=== PATIENT | male | born 1970 | race Caucasian/White ===

== ENCOUNTER → 2018-03-26 | Outpatient (CLI) | payer BC ==
--- NOTE | 2018-03-27 08:59 | Diagnostic Imaging Report ---
EXAMINATION: Magnetic resonance imaging of the right knee without intravenous contrast DATE: March 26, 2018. COMPARISON: None. INDICATION: 47-year-old male, right knee pain. TECHNIQUE: Multiplanar, multisequence noncontrast enhanced MR imaging was accomplished. FINDINGS: MENISCI: There is an extensive complex predominantly oblique tear involving the anterior horn, body, and posterior horn of the medial meniscus. There is extrusion of the medial meniscus measuring approximately 4 mm. The lateral meniscus is intact. LIGAMENTS AND TENDONS: The anterior and posterior cruciate ligaments are intact. The superficial component of the medial collateral ligament complex is intact. The iliotibial band, mid third lateral capsular ligament, fibular collateral ligament, biceps femoris tendon, and conjoined tendon are intact. The quadriceps tendon and patellar ligament are intact. JOINT: There is a cartilage fissure with flap morphology involving approximately 50% of the thickness of the cartilage of the medial patellar facet with a transverse dimension of approximately 3 mm as measured on axial T2 fat saturation sequence image 7. There does appear to be irregularity and a probable cartilage flap of the lateral femoral trochlea. There are broad areas of full-thickness cartilage loss involving the mid and posterior weightbearing portions of the medial femoral condyle and subjacent medial tibial plateau with adjacent subchondral sclerosis and degenerative related marrow edema. There is a small to moderate sized knee joint effusion. There is no identified intra-articular body or prominent synovitis. BONE: The additional bone marrow signal is unremarkable. Specifically, negative for fracture, osteomyelitis, osteonecrosis, or marrow replacing process. There is elongation of the lateral aspect of the patella. BURSAE AND SOFT TISSUES: There is no Siu's cyst. There is nonspecific prepatellar subcutaneous edema. IMPRESSION: 1. Extensive complex tear involving the entire medial meniscus with 4 mm of medial meniscal extrusion. 2. Intact lateral meniscus. 3. Intact anterior and posterior cruciate ligaments. Additional ligaments and tendons are intact. 4. Severe medial and mild patellofemoral compartment osteoarthritis. Small to moderate knee joint effusion without identified intra-articular body or prominent synovitis. 5. No acute fracture, bone contusion, or evidence of osteonecrosis. Dictated by: Dictated on workstation # [id number]
== END ==
LOC: RAD 16:03
PROVIDERS: ATTEND Nurse Practitioner
DX: M23.321 Other meniscus derangements, posterior horn of medial meniscus, right knee (principal); M65.861 Other synovitis and tenosynovitis, right lower leg; M17.11 Unilateral primary osteoarthritis, right knee
CPT/HCPCS: 73721

== ENCOUNTER 2020-03-17 09:36 | Emergency (ER) | payer BC ==
[~2020-03-17] VITALS: Ht 180 cm; Wt 89.0 kg
[2020-03-17] MEDS ORDERED: LACTATED RINGERS 1,000 ML IV ONE ×2 (09:59→10:00)
[2020-03-17 10:11] LABS: BASOPHILS % (AUTO) 0 % (0-10); EOSINOPHILS % (AUTO) 0 % (0-10); PLATELET COUNT 137 10^3/uL (130-400)
[2020-03-17 10:13] LABS: HEMATOCRIT 43 % (40-54); LYMPHOCYTES # (AUTO) 1.2 10^3/uL (1.0-4.0); LYMPHOCYTES % (AUTO) 24 % (12-44); MEAN CORPUSCULAR HEMOGLOBIN 30 pg (25-34); MEAN CORPUSCULAR HGB CONC 35 g/dL (32-36); MEAN CORPUSCULAR VOLUME 87 fL (80-99); MEAN PLATELET VOLUME 11.1 fL (9.0-12.2); MONOCYTES # (AUTO) 0.7 10^3/uL (0.0-1.0); MONOCYTES % (AUTO) 14 % (0-12); NEUTROPHILS # (AUTO) 2.9 10^3/uL (1.8-7.8); NEUTROPHILS % (AUTO) 60 % (42-75); WHITE BLOOD COUNT 4.8 10^3/uL (4.3-11.0)
[2020-03-17 10:22] LABS: ALBUMIN 4.1 GM/DL (3.2-4.5); CHLORIDE 96 MMOL/L (98-107); SODIUM 134 MMOL/L (135-145)
[2020-03-17 10:23] LABS: CALCIUM 9.3 MG/DL (8.5-10.1)
[2020-03-17 10:25] LABS: GLUCOSE 93 MG/DL (70-105); TOTAL PROTEIN 6.8 GM/DL (6.4-8.2)
[2020-03-17 10:26] LABS: BILIRUBIN,TOTAL 0.9 MG/DL (0.1-1.0); CARBON DIOXIDE 25 MMOL/L (21-32)
[2020-03-17 10:28] LABS: ALKALINE PHOSPHATASE 60 U/L (40-136); CREATININE SERUM 0.96 MG/DL (0.60-1.30); GFR ESTIMATED > 60
[2020-03-17 10:29] LABS: BUN/CREATININE RATIO 20
[2020-03-17 10:31] LABS: ALANINE AMINOTRANSFERASE 73 U/L (0-55)
[2020-03-17 10:32] LABS: MAGNESIUM 1.9 MG/DL (1.6-2.4)
--- NOTE | 2020-03-17 10:37 | Diagnostic Imaging Report ---
INDICATION: Shortness of breath Portable chest 10:24 AM There are some patchy groundglass infiltrates in the lower portions of both lungs suspicious for viral pneumonia. There are no effusions. IMPRESSION: Bilateral pulmonary infiltrates consistent with viral pneumonia. Dictated by: Dictated on workstation # [id number]
--- NOTE | 2020-03-17 11:23 | NUR ---
PT STATES HE DOES NOT FEEL BETTER DESPITE THE BAG OF FLUIDS. CONTINUES TO COMPLAIN OF DIZZINESS. NOTIFIED.
--- NOTE | 2020-03-17 11:46 | ED General ---
General Chief Complaint: Respiratory Problems Stated Complaint: DIZZY,SOB,COUGH Nursing Triage Note: ASSISTED OUT OF CAR WITH WC. UNDER QUARENTEEN DUE TO AND CHILD HAIVING AZRAID. PT STATES HIS SYMPTOMS STARTED ON THE . CONTINUES WITH DIZZINESS, COUCH, SOA, BODY ACHES AND FEVER. PT HAS BEEN TAKING A ILANA AND PREDNISONE. Nursing Sepsis Screen: No Definite Risk Source of Information: Patient Exam Limitations: No Limitations History of Present Illness Date Seen by Provider: Mar 17, 2020 Time Seen by Provider: 09:50 Initial Comments This 49-year-old gentleman presents to the emergency room with symptoms of COVID-19 including shortness of breath, cough, fatigue, and most prominently lightheadedness. It is the lightheadedness that brought him into the emergency room. His family members have been diagnosed with COVID-19 and his daughter is currently admitted in the hospital. He has not yet been tested. He was treated with a azithromycin which he completed. He has also taken prednisone with his last dose being yesterday. Vital signs are unremarkable. He is not in respiratory distress. Allergies and Home Medications Allergies Coded Allergies: No Known Drug Allergies (Unverified , 03/17/20) Patient Home Medication List Home Medication List Reviewed: Yes Review of Systems Review of Systems Constitutional: see HPI, fever EENTM: no symptoms reported Respiratory: see HPI Cardiovascular: no symptoms reported Gastrointestinal: no symptoms reported Genitourinary: no symptoms reported Musculoskeletal: see HPI Skin: no symptoms reported Psychiatric/Neurological: See HPI Hematologic/Lymphatic: No Symptoms Reported Past Vhukvkr-Oxiohu-Rdhuek Hx Past Med/Social Hx: Reviewed Nursing Past Med/Soc Hx Patient Social History Recent Foreign Travel: No Contact w/Someone Who Travel: No Recent Infectious Disease Expo: No Recent Hopitalizations: No Past Medical History Surgeries: No Respiratory: No Cardiac: Yes Hypertension Neurological: No Genitourinary: No Gastrointestinal: No Musculoskeletal: No Endocrine: No HEENT: No Cancer: No Psychosocial: No Integumentary: No Physical Exam Vital Signs Vital Signs - First Documented 03/17/20 09:45 Temp 37.1 Pulse 51 Resp 16 B/P (MAP) 125/87 (100) Pulse Ox 95 O2 Delivery Room Air Capillary Refill : Less Than 3 Seconds Height, Weight, BMI Height: '" Weight: lbs. oz. kg; 27.00 BMI Method: General Appearance: No Apparent Distress, WD/WN, Other (Generally ill appearing) HEENT: PERRL/EOMI, Normal ENT Inspection, Pharynx Normal Neck: Normal Inspection Respiratory: Lungs Clear, No Accessory Muscle Use, No Respiratory Distress, Decreased Breath Sounds (Shallow respirations) Cardiovascular: Regular Rate, Rhythm, No Edema, No Murmur Gastrointestinal: Non Tender, Soft Extremity: Normal Inspection, No Calf Tenderness, No Pedal Edema Neurologic/Psychiatric: Alert, Oriented x3, No Motor/Sensory Deficits, Normal Mood/Affect, allergy nurse II-XII Norm as Tested Skin: Normal Color, Warm/Dry Progress/Results/Core Measures Suspected Sepsis Recent Fever Within 48 Hours: Yes Infection Criteria Present: Suspected New Infection New/Unexplained Altered Menta: No Sepsis Screen: No Definite Risk SIRS Temperature: Pulse: 51 Respiratory Rate: 16 Laboratory Tests 03/17/20 10:00: White Blood Count 4.8 Blood Pressure 125 /87 Mean: 100 Laboratory Tests 03/17/20 10:00: Creatinine 0.96, Platelet Count 137, Total Bilirubin 0.9 Results/Orders Lab Results Laboratory Tests Test 03/17/20 09:58 03/17/20 10:00 Range/Units White Blood Count 4.8 4.3-11.0 10^3/uL Red Blood Count 4.97 4.30-5.52 10^6/uL Hemoglobin 15.0 13.3-17.7 g/dL Hematocrit 43 40-54 % Mean Corpuscular Volume 87 80-99 fL Mean Corpuscular Hemoglobin 30 25-34 pg Mean Corpuscular Hemoglobin Concent 35 32-36 g/dL Red Cell Distribution Width 12.5 10.0-14.5 % Platelet Count 137 130-400 10^3/uL Mean Platelet Volume 11.1 9.0-12.2 fL Immature Granulocyte % (Auto) 1 % Neutrophils (%) (Auto) 60 42-75 % Lymphocytes (%) (Auto) 24 12-44 % Monocytes (%) (Auto) 14 H 0-12 % Eosinophils (%) (Auto) 0 0-10 % Basophils (%) (Auto) 0 0-10 % Neutrophils # (Auto) 2.9 1.8-7.8 10^3/uL Lymphocytes # (Auto) 1.2 1.0-4.0 10^3/uL Monocytes # (Auto) 0.7 0.0-1.0 10^3/uL Eosinophils # (Auto) 0.0 0.0-0.3 10^3/uL Basophils # (Auto) 0.0 0.0-0.1 10^3/uL Immature Granulocyte # (Auto) 0.1 0.0-0.1 10^3/uL Sodium Level 134 L 135-145 MMOL/L Potassium Level 4.0 3.6-5.0 MMOL/L Chloride Level 96 L 98-107 MMOL/L Carbon Dioxide Level 25 21-32 MMOL/L Anion Gap 13 5-14 MMOL/L Blood Urea Nitrogen 19 H 7-18 MG/DL Creatinine 0.96 0.60-1.30 MG/DL Estimat Glomerular Filtration Rate > 60 BUN/Creatinine Ratio 20 Glucose Level 93 70-105 MG/DL Calcium Level 9.3 8.5-10.1 MG/DL Corrected Calcium 9.2 8.5-10.1 MG/DL Magnesium Level 1.9 1.6-2.4 MG/DL Total Bilirubin 0.9 0.1-1.0 MG/DL Aspartate Amino Transf (AST/SGOT) 53 H 5-34 U/L Alanine Aminotransferase (ALT/SGPT) 73 H 0-55 U/L Alkaline Phosphatase 60 40-136 U/L C-Reactive Protein High Sensitivity 4.11 H 0.00-0.50 MG/DL Total Protein 6.8 6.4-8.2 GM/DL Albumin 4.1 3.2-4.5 GM/DL My Orders Orders - CARMEN CHRISTY MD Lactated Ringers (Lr 1000 Ml Iv Solution (03/17/20 09:59) Ed Iv/Invasive Line Start (03/17/20 10:00) Lactated Ringers (Lr 1000 Ml Iv Solution (03/17/20 10:00) Cbc With Automated Diff (03/17/20 10:00) Comprehensive Metabolic Panel (03/17/20 10:00) Hs C Reactive Protein (03/17/20 10:00) Magnesium (03/17/20 10:00) Chest 1 View, Ap/Pa Only (03/17/20 10:00) Coronavirus Sars-Cov-2 So 2018 (03/17/20 11:41) Medications Given in ED Current Medications Medications Dose Ordered Sig/Amy Route Start Time Stop Time Status Last Admin Dose Admin Lactated Ringer's 1,000 ml @ 0 mls/hr Q0M ONCE IV 03/17/20 10:00 03/17/20 10:02 DC 03/17/20 10:05 1,000 MLS/HR Vital Signs/I&O 03/17/20 03/17/20 09:45 12:01 Temp 37.1 Pulse 51 52 Resp 16 20 B/P (MAP) 125/87 (100) 132/80 Pulse Ox 95 95 O2 Delivery Room Air Room Air Capillary Refill : Less Than 3 Seconds Blood Pressure Mean: 100 Progress Note : Progress Note Work-up was fairly unremarkable except for findings expected for COVID-19 including mildly elevated CRP and a groundglass infiltrates on the chest x-ray. Patient received IV fluids which did not seem to help his lightheadedness. He did not seem to have orthostatic hypotension. Ultimately, I believe his sensation of lightheadedness is part of the COVID-19 syndrome. Since he had not been formally tested for COVID-19 a swab was obtained. Patient was dismissed home with return precautions. Diagnostic Imaging Diagonstic Imaging: Xray Plain Films/CT/US/NM/MRI: chest Comments Chest x-ray viewed by me and report reviewed. See report below: NAME: RODRICK MCKEON [facility] REC#: [id number] PT STATUS: REG ER : 1970 PHYSICIAN: CARMEN CHRISTY MD ADMIT DATE: 03/17/20/ER Signed Date of Exam:03/17/20 CHEST 1 VIEW, AP/PA ONLY INDICATION: Shortness of breath Portable chest 10:24 AM There are some patchy groundglass infiltrates in the lower portions of both lungs suspicious for viral pneumonia. There are no effusions. IMPRESSION: Bilateral pulmonary infiltrates consistent with viral pneumonia. Dictated by: Dictated on workstation # [id number] Dict: 03/17/20 1036 Trans: 03/17/20 1042 [facility] [id number] Interpreted by: NAZARIO TIERNEY MD Electronically signed by: NAZARIO TIERNEY MD 03/17/20 1042 Departure Impression Primary Impression: Lightheadedness Additional Impression: COVID-19 Disposition: 01 HOME, SELF-CARE Condition: Stable Departure-Patient Inst. Decision time for Depature: 11:43 Referrals: PILAR ARDON MD (PCP/Family) Primary Care Physician Patient Instructions: Coronavirus Disease 2019 (COVID-19) Overview Add. Discharge Instructions: Call or return to care if you have worsening symptoms, questions, or concerns. Drink plenty of clear liquids. Exercise deep breathing and change positions often. You may use [id number] cough suppressants and/or Tylenol/ibuprofen for symptom management. If your blood pressure remains less than 140 systolic and less than 90 diastolic, you may continue to hold lisinopril if you choose. All discharge instructions reviewed with patient and/or family. Voiced understanding. CARMEN CHRISTY MD Mar 17, 2020 11:46
[2020-03-17 12:01] VITALS: BP 132/80
--- NOTE | 2020-03-18 08:56 | NUR ---
Notified patient of positive COVID test
== END 2020-03-17 12:01 | disposition home or self-care (01) ==
LOC: EDUNIT# 09:36 → ER 09:38
DX: U07.1 COVID-19 (principal); R42 Dizziness and giddiness
CPT/HCPCS: 71045; 80053; 83735; 85025; 86141; U0002; 36415; 87635